=== PATIENT | male | born 1970 | race Caucasian/White ===

== ENCOUNTER 2020-01-24 08:01 | Outpatient (CLI) | payer OTHER, SELFPAY ==
--- NOTE | ~2020-01-24 | XR_ITS ---
XR cervical spine min 6V DATE: 01/24/2020 08:20 INDICATION: Neck pain. No recent injury. TECHNIQUE: AP, open-mouth, lateral, bilateral oblique views COMPARISON: None FINDINGS: There is straightening of the cervical spine. C1 and C2 are normally aligned and the odontoid process is intact. No fracture or dislocation or lock ed facet or prevertebral soft tissue swelling. There is moderate degenerative disc disease at C5-6 and C6-7. There is mild loss of height at C4-5. There is uncovertebral joint spurring primarily on the right at C5-6 and C6-7. IMPRESSION: Degenerative changes; no fracture or dislocation Reviewed, dictated and finalized at location A.
== END 2020-01-24 08:02 | disposition home or self-care (01) ==
PROVIDERS: PCP Family Medicine; Visit Provider Family Medicine
DX: M54.2 Cervicalgia (principal)
CPT/HCPCS: 72052

== ENCOUNTER 2020-02-25 09:10 | Outpatient (CLI) | payer OTHER, SELFPAY ==
--- NOTE | 2020-02-25 09:13 | ECG_ITS ---
Measurements Intervals [place] Rate: 70 P: 28 SD: 155 QRS: 25 QRSD: 85 T: 19 QT: 380 QTc: 411 Interpretive Statements SINUS RHYTHM NORMAL ECG Electronically Signed On 02-25-2020 9:25:47 CDT by Manish Dang D.O.
== END 2020-02-25 09:11 | disposition home or self-care (01) ==
LOC: ANHSURGERY 09:13
PROVIDERS: PCP Family Medicine; Visit Provider Orthopaedic Surgery
DX: Z01.818 Encounter for other preprocedural examination (principal); Z87.891 Personal history of nicotine dependence
CPT/HCPCS: 93005

== ENCOUNTER 2020-03-04 00:07 | Outpatient (CLI) | payer OTHER, SELFPAY ==
[2020-03-04 18:52] LABS: SARS-CoV-2 RNA PCR Negative
== END 2020-03-04 00:08 | disposition home or self-care (01) ==
LOC: ANHCOVIDDT 00:07
PROVIDERS: PCP Family Medicine; Visit Provider Orthopaedic Surgery
DX: Z01.812 Encounter for preprocedural laboratory examination (principal); Z11.59 Encounter for screening for other viral diseases
CPT/HCPCS: 87635; C9803; U0003

== ENCOUNTER 2020-03-06 00:02 | Day surgery (SDC) | payer OTHER, SELFPAY ==
[2020-02-24 09:53] VITALS: BMI 28.1
--- NOTE | 2020-03-05 10:24 | WPDANESEPPF ---
Anes - Initial Pre Proc Eval Procedure: Operation Date: 03/06/20 07:30 Proposed Procedures p Right Shoulder Arthroscopic Debridement And Microfracture, Posterior Capsule Release, Subacromial Decompression, Subcoracoid Decompression, Proceed As Indicated - Lamont Andres MD Date/Time: 03/05/20 10:24 Surgeon: Lamont Andres MD Pre Op Diagnosis: OA Right Shoulder Patient Data Age: 49 Gender: M Height: 1.73 m Weight: 83.91 kg Allergies Allergy/AdvReac Type Severity Reaction Status Date / Time No Known Allergies Allergy Mild Unverified 03/06/20 06:14 Home Medications Medication Instructions Recorded Confirmed Type trazodone 50 mg PO HS 02/24/20 03/06/20 History loratadine 10 mg tablet 10 mg PO DAILY 02/26/20 03/06/20 History Patient hx anesthesia problems: none Family hx anesthesia problems: none PMFSH Social History Social History Smoking packs per day: 1 Smoking cigarettes per day: 20.0 Years smoked: 20 Smoking pack-years: 20.00 Smoking status: Current every day smoker Tobacco type: cigarettes and e-cigarettes/vaping Additional smoking assessment comments: QUIT SMOKING 5 YEARS AGO, NOW USES VAPOR CIGARETTE Alcohol intake: current Spiritual care concerns: No Anes - Eval Final PreProcedure Day of Procedure 03/05/20 10:24 Patient weight: overweight Heart: regular rate and rhythm Lungs: clear to auscultation and normal air movement Airway: Mallampati scale class II Neurological: alert and oriented Last oral intake: >/= 8 hours ASA classification: II Emergent: no Anesthetic plan: proceed Anesthesia type and monitoring: general ETT and standard monitoring Informed Consent: The patient's anesthetic plan and its attendant risks and benefits were discussed with the patient/family/POA. Questions were solicited and answers provided to the satisfaction of the patient/family/POA.
--- NOTE | 2020-03-05 10:24 | WPDANESPNB ---
Anes - Peripheral Nerve Block Date/Time: 03/05/20 10:24 I have discussed with the patient/family/POA the placement of a peripheral nerve block for post-operative pain management, including associated risks, benefits, complications, and side effects. Alternative methods of post-operative analgesia were detailed. Questions were solicited and answers provided to the satisfaction of the patient/family/POA. Time-Out: A pre-procedural Time-Out was completed immediately before starting the procedure and confirmed: Patient Identification, Site, Procedure, Patient Position and the Availability of Requisite Equipment. Clinical Indications: Acute post-operative pain management requested by the operative surgeon. Nerve Block Insertion Note Anes-nerve block: interscalene right Patient position: supine Skin prep: chlorhexidine Needle: 22 gauge, stimulating, insulated echogenic needle. Needle length: 50 mm Technique: ultrasound Injectate: bupivacaine 0.5% with epi 5 mcg/ml (30cc) Observations: tolerated well Complications: none Procedure start time:: 721 Procedure end time:: 724
[2020-03-06] VITALS (9 sets, daily range): BP systolic 111–152; BP diastolic 57–86; PULSE 64–95; RESP 16–20; TEMP 36.1–36.3; O2SAT 94–100
[2020-03-06] MEDS: LACTATED RINGERS 1,000 ML 30 ML IV CONT ×2 (06:25→09:32)
[2020-03-06] MEDS: ACETAMINOPHEN 500 MG TABLET 1000 MG PO (06:32)
[2020-03-06] MEDS: KETOROLAC 15 MG/ML VIAL (*BKC) IV PUSH (06:33)
--- NOTE | 2020-03-06 07:18 | WPDHPUPDATE1 ---
History and Physical Update Update Date/Time: 03/06/20 07:18 History and Physical has been reviewed, including an updated exam of the patient. There are NO changes in the patient's condition. Risks, benefits, and alternatives have been discussed and questions answered. Patient agrees to proceed with procedure.
[2020-03-06] MEDS: ceFAZolin 2 GM/D5W 50 ML 2 GM/50 ML BAG IVPB (07:28)
--- NOTE | 2020-03-06 09:27 | P.OP_ITS ---
Procedure Note - Detailed Date of procedure: 03/06/20 Pre-op diagnosis: OA Right Shoulder Post-op diagnosis: other (1. Osteoarthritis right shoulder. 2. Posterior capsule contracture. 3. Impingement syndrome.) Procedure performed: 1. Arthroscopic labral debridement, and glenoid chondropla sty. 2. Arthroscopic microfracture of posterior and inferior glenoid. 3. Arthroscopic subacromial and subcoracoid decompression. Anesthesia: GLMA Surgeon: Lamont Andres MD Estimated blood loss (mL): 20 Complications: No immediate complications Condition: stable Disposition: PACU Findings: An interscalene block was placed in the preoperative area. Preoperative antibiotics were given. A general anesthetic was administered. The careful patient was carefully placed in the beach chair position. Bony prominence was were protected. Examination revealed tightness and internal rotation 2. No other abnormalities or instability was identified. The shoulder was prepped and draped in the usual sterile fashion. Standard posterior and anterior arthroscopic portals were established. The glenoid showed significant arthritis with grade 4 chondromalacia and defect along the posterior and inferior aspect. Extensive posterior and inferior labral degeneration was noted. Chondroplasty was performed and the labrum was debrided. The humeral cartilage was in good condition. Microfracture was performed with the awls along the exposed bone of the glenoid. The radiofrequency probe was also used to help taper the remaining intact labrum. The biceps tendon appeared normal. It was stable at the anchor point with minimal degenerative fraying of the superior labrum. There was a mild to moderate capsulitis. A posterior capsule release was performed with the radiofrequency probe and the meniscal resector. The rotator cuff appeared normal in the superior and posterior aspect. The subscapularis showed minimal splitting in the superior rim. Possible suggestion of subcoracoid impingement. The rotator interval was released and the coracoid was identified. Debridement of the prominent projection of bone was performed with the resector blade. Attention was turned to the subacromial space. An accessory lateral portal was created. The bursa did not appear to be significantly inflamed. Bursectomy was performed. The rotator cuff appeared completely intact. Slight downsloping of the acromion was observed and the coracoacromial ligament was released followed by subacromial decompression with the arthroscopic bur. The arthroscopic instruments were removed. The wounds closed with interrupted 4 0 Monocryl suture followed by Steri-Strips.
== END 2020-03-06 11:39 | disposition home or self-care (01) ==
PROVIDERS: PCP Family Medicine; Visit Provider Orthopaedic Surgery
PROC: (CPT 29805; principal; 2020-03-06 07:30)
DX: M19.011 Primary osteoarthritis, right shoulder (principal); M75.41 Impingement syndrome of right shoulder; M24.511 Contracture, right shoulder; M94.211 Chondromalacia, right shoulder; G89.18 Other acute postprocedural pain; F17.290 Nicotine dependence, other tobacco product, uncomplicated
CPT/HCPCS: 29823; 64415; A4565; A9270; J0330; J0690; J1100; J1885; J2250; J2370; J2405; J2704; J3010; J7120

== ENCOUNTER 2021-04-30 09:50 | Outpatient (CLI) | payer OTHER, SELFPAY ==
--- NOTE | ~2021-04-30 | MR_ITS ---
EXAMINATION: MR cervical spine wo con EXAM DATE: 04/30/2021 10:27 INDICATION: Neck pain. Cervicalgia. TECHNIQUE: Multi-sequential, multiplanar MR images of the cervical spine were obtained without contra st. Axial T2, axial T2 MERGE sequence. Sagittal T1, T2, T2 fat saturation images also obtained. Cor relation is made to Cervical x-ray 01/24/2020 FINDINGS: There is mild to moderate disc disease from C4 through C7. The vertebral bodies are aligne d in the AP dimension. The spinal cord signal intensity and intrinsic morphology is normal. Cervicome dullary junction is normal in appearance. There are no suspicious marrow signal abnormalities. Parasp inal soft tissue is unremarkable. Level by level evaluation: C2-C3: Disc does not extend beyond the endplate margin. Uncovertebral joint arthropathy: Mild left. Facet joint arthropathy: Moderate left, mild right. Neural foraminal stenosis: Mild left. Central canal stenosis: No stenosis. C3-C4: There is a minimal diffuse disc bulge. Uncovertebral joint arthropathy: Mild bilateral. Facet joint arthropathy: Moderate left, mild to moderate right. Neural foraminal stenosis: Minimal right. Central canal stenosis: No stenosis. C4-C5: There is a mild diffuse disc bulge. Uncovertebral joint arthropathy: Moderate right, mild to moderate left. Facet joint arthropathy: Moderate to severe left, moderate right. Neural foraminal stenosis: Moderate right, mild to moderate left. Central canal stenosis: Mild. C5-C6: There is a mild diffuse disc bulge. Uncovertebral joint arthropathy: Moderate to severe right, moderate left. Facet joint arthropathy: Moderate bilateral. Neural foraminal stenosis: Moderate to severe right, mild left. Central canal stenosis: Mild. C6-C7: There is a mild diffuse disc bulge. Uncovertebral joint arthropathy: Moderate right, mild to moderate left. Facet joint arthropathy: Mild bilateral. Neural foraminal stenosis: Mild to moderate right, mild left. Central canal stenosis: Minimal. C7-T1: Disc does not extend beyond the endplate margin. Uncovertebral joint arthropathy: Mild to moderate bilateral. Facet joint arthropathy: Mild to moderate bilateral. Neural foraminal stenosis: Mild left. Central canal stenosis: No stenosis. IMPRESSION: Overall moderate cervical spondylosis, right-sided C5-6 and 4-5 most narrowed on exam. Reviewed, dictated and finalized at location A. IMPRESSION: Overall moderate cervical spondylosis, right-sided C5-6 and 4-5 mos t narrowed on exam.
== END 2021-04-30 09:51 ==
PROVIDERS: Visit Provider Nurse Practitioner Family
DX: M47.813 Spondylosis without myelopathy or radiculopathy, cervicothoracic region (principal); M48.03 Spinal stenosis, cervicothoracic region
CPT/HCPCS: 72141

== ENCOUNTER 2022-05-31 13:49 | Outpatient (CLI) | payer OTHER, SELFPAY ==
--- NOTE | ~2022-05-31 | XR_ITS ---
XR chest 2V DATE: 05/31/2022 14:21 INDICATION: Hazardous exposure TECHNIQUE: 2 views COMPARISON: 12/28/2011 PA chest FINDINGS: Normal heart size. No hilar or mediastinal enlargement. No pulmonary infiltrate or consolid ation, pleural effusion or pulmonary vascular congestion or pneumothorax. IMPRESSION: No active cardiopulmonary disease Reviewed, dictated and finalized at location A.
== END 2022-05-31 13:50 ==
PROVIDERS: PCP Family Medicine; Visit Provider Family Medicine
DX: Z77.098 Contact with and (suspected) exposure to other hazardous, chiefly nonmedicinal, chemicals (principal)
CPT/HCPCS: 71046

== ENCOUNTER 2022-07-01 01:31 | Day surgery (SDC) | payer OTHER, SELFPAY ==
[2022-06-15 15:21] VITALS: BMI 28.9
[2022-07-01 12:34] VITALS: BP 151/92; PULSE 80; RESP 18; TEMP 36.8; O2SAT 98
--- NOTE | 2022-07-01 12:36 | WPDANESEPPF ---
Anes - Initial Pre Proc Eval Procedure: Operation Date: 07/01/22 13:30 Proposed Procedures p Screening Colonoscopy - Andrews Doherty MD Date/Time: 07/01/22 12:36 Surgeon: Andrews Doherty MD Pre Op Diagnosis: neoplasm screening Patient Data Age: 51 Gender: M Height: 1.73 m Weight: 90.1 kg Last Vital Signs Temp 36.8 C 07/01/22 12:34 Pulse 80 07/01/22 12:34 Resp 18 07/01/22 12:34 BP 151/92 H 07/01/22 12:34 Pulse Ox 98 07/01/22 12:34 O2 Del Method Room Air 07/01/22 12:34 Allergies Allergy/AdvReac Type Severity Reaction Status Date / Time No Known Allergies Allergy Mild Verified 06/15/22 15:27 Home Medications Medication Instructions Recorded Confirmed Type omeprazole 20 mg capsule,delayed 20 mg PO DAILY 06/15/22 06/15/22 History release sertraline 100 mg tablet 100 mg PO DAILY 06/15/22 06/15/22 History Patient hx anesthesia problems: none Family hx anesthesia problems: none Results Review: All pre-operative results and documents have been reviewed as part of the pre-operative evaluation. [facility] Past Medical History Medical History Obesity Smoker Surgical History Surgical History (Updated 07/01/22 @ 12:37 by Irvin Barrera MD) History of shoulder surgery Family History Family History Father Diabetes mellitus Mother Family history of pancreatic cancer Family history of malignant neoplasm of breast in first degree relative Social History Social History Smoking packs per day: 1 Smoking cigarettes per day: 20.0 Years smoked: 20 Smoking pack-years: 20.00 Smoking status: Current some day smoker Tobacco type: cigarettes and e-cigarettes/vaping Additional smoking assessment comments: QUIT SMOKING 5 YEARS AGO, NOW USES VAPOR CIGARETTE Alcohol intake: current Drinks per week: 1 Substance use type: does not use Living arrangements: with family Spiritual care concerns: No Anes - Eval Final PreProcedure Day of Procedure 07/01/22 12:36 Patient weight: obese Heart: regular rate and rhythm Lungs: clear to auscultation Airway: Mallampati scale class II Neurological: alert and oriented Last oral intake: >/= 8 hours ASA classification: II Emergent: no Anesthetic plan: proceed Anesthesia type and monitoring: general GIVS and standard monitoring Results Review: All pre-operative results and documents have been reviewed as part of the pre-operative evaluation. Informed Consent: The patient's anesthetic plan and its attendant risks and benefits were discussed with the patient/family/POA. Questions were solicited and answers provided to the satisfaction of the patient/family/POA.
[2022-07-01] MEDS: LACTATED RINGERS 1,000 ML 150 ML IV CONT (12:44)
--- NOTE | 2022-07-01 13:11 | PM.HPGS ---
History of Present Illness History of Present Illness Consent: Risks, benefits, and alternatives have been discussed and questions answered. Patient agrees to proceed with procedure. Chief complaint: neoplasm screening Narrative: Franco Turk is a 51 year old male Presents for screening colonoscopy. Patient's current weight appetite and bowel movements are normal. Patient denies abdominal pain. He has had no bleeding. Family history is noncontributory. Review of Systems Review of Systems: Review of systems noncontributory. [facility] Past Medical History Medical History Obesity Smoker Surgical History Surgical History (Updated 07/01/22 @ 12:37 by Irvin Barrera MD) History of shoulder surgery Family History Family History Father Diabetes mellitus Mother Family history of pancreatic cancer Family history of malignant neoplasm of breast in first degree relative Social History Social History Smoking packs per day: 1 Smoking cigarettes per day: 20.0 Years smoked: 20 Smoking pack-years: 20.00 Smoking status: Current some day smoker Tobacco type: cigarettes and e-cigarettes/vaping Additional smoking assessment comments: QUIT SMOKING 5 YEARS AGO, NOW USES VAPOR CIGARETTE Alcohol intake: current Drinks per week: 1 Substance use type: does not use Living arrangements: with family Spiritual care concerns: No Meds Home Medications and Allergies Home Medications Medication Instructions Recorded Confirmed Type omeprazole 20 mg capsule,delayed 20 mg PO DAILY 06/15/22 06/15/22 History release sertraline 100 mg tablet 100 mg PO DAILY 06/15/22 06/15/22 History Allergies Allergy/AdvReac Type Severity Reaction Status Date / Time No Known Allergies Allergy Mild Verified 06/15/22 15:27 Vital Signs Vital Signs - 24 hr 07/01/22 12:34 Temperature 98.2 F Pulse Rate 80 Respiratory Rate 18 Blood Pressure 151/92 H Pulse Oximetry 98 Oxygen Delivery Room Air Exam Narrative: Physical exam reveals patient to be alert. Vital signs stable. HEENT exam unremarkable. Patient is anicteric. Lungs are clear to auscultation and percussion. Heart is without murmur or extra sounds. Abdomen bowel sounds present soft nontender with no organomegaly. Digital external rectal exam is normal. Assessment and Plan Assessment and plan (1) Encounter for screening colonoscopy: Code(s): Z12.11 - Encounter for screening for malignant neoplasm of colon Status: Acute Assessment and Plan: Patient presents today for screening colonoscopy. He appears to be at average risk for colon polyps.
[2022-07-01 13:15] VITALS: BP 114/75; PULSE 72; RESP 20; O2SAT 98
[2022-07-01 13:25] VITALS: BP 117/83; PULSE 74; RESP 24; O2SAT 98
[2022-07-01 13:35] VITALS: BP 117/83; PULSE 68; RESP 14; O2SAT 99
== END 2022-07-01 13:50 | disposition home or self-care (01) ==
PROVIDERS: PCP Family Medicine; Visit Provider Internal Medicine Gastroenterology
PROC: 0DJD8ZZ Inspection of Lower Intestinal Tract, Via Natural or Artificial Opening Endoscopic (ICD-10-PCS; CPT 45378; principal; 2022-07-01 13:30)
DX: Z12.11 Encounter for screening for malignant neoplasm of colon (principal); D17.5 Benign lipomatous neoplasm of intra-abdominal organs; E66.9 Obesity, unspecified; Z68.30 Body mass index [BMI] 30.0-30.9, adult; F17.290 Nicotine dependence, other tobacco product, uncomplicated
CPT/HCPCS: 45385; 88305; J2704; J7120